=== PATIENT | male | born 1950 | race Caucasian/White ===

== ENCOUNTER 2017-12-16 01:33 | Emergency (ER) | payer OTHER ==
[2017-12-16 02:03] LABS: ADD MAN DIFF? NO
[2017-12-16 02:06] LABS: WHITE BLOOD COUNT 8.9 10^3/ul (4.8-10.8)
[2017-12-16 02:07] LABS: BASOPHILS % 0.2 % (0.0-2.0); EOSINOPHILS # 0.3 10^3/ul (0.0-0.5); EOSINOPHILS % 3.6 % (0.0-7.0); HEMOGLOBIN 9.7 g/dl (14.0-18.0); LYMPHOCYTES # 2.8 10^3/ul (0.8-2.9); LYMPHOCYTES % 31.6 % (15.0-51.0); MEAN CORPUSCULAR HGB CONC 31.3 g/dl (32.0-37.0); MEAN CORPUSCULAR VOLUME 73.6 fl (82.0-101.0); MEAN PLATELET VOLUME 10.8 fl (7.4-10.4); MONOCYTE # 0.9 10^3/ul (0.3-0.9); MONOCYTES % 9.8 % (0.0-11.0); NEUTROPHIL # 4.9 10^3/ul (1.6-7.5); NEUTROPHILS % 54.5 % (39.0-77.0); PLATELET COUNT 220 10^3/UL (140-415); RED BLOOD COUNT 4.21 10^6/ul (4.70-6.10); RED CELL DISTRIBUTION WIDTH 18.5 % (11.5-14.5)
[2017-12-16 02:17] LABS: ANION GAP 18 (8-16); BLOOD UREA NITROGEN 18 mg/dl (7-20); CALCIUM 9.5 mg/dl (8.4-10.2); CARBON DIOXIDE 23 mmol/L (21-31); CHLORIDE 100 mmol/L (97-110); CREATININE 1.36 mg/dl (0.61-1.24); GLUCOSE 144 mg/dl (70-220); POTASSIUM 4.1 mmol/L (3.5-5.1); SODIUM 137 mmol/L (135-144)
[2017-12-16 02:36] LABS: TROPONIN-I < 0.012 ng/ml (0.000-0.120)
[2017-12-16] MEDS: hydrALAzine 20 MG INJ IV (03:26)
== END 2017-12-16 05:52 | disposition home or self-care (01) ==
LOC: E/R 01:33
DX: I10 Essential (primary) hypertension (principal); E11.9 Type 2 diabetes mellitus without complications; Z79.82 Long term (current) use of aspirin; Z79.84 Long term (current) use of oral hypoglycemic drugs; Z95.1 Presence of aortocoronary bypass graft
CPT/HCPCS: 36415; 70450; 71045; 80048; 82962; 84484; 85025; 93005; 96374; 99285-25